=== PATIENT | male | born 1990 | race Caucasian/White ===

== ENCOUNTER 2019-02-27 08:38 | Emergency (ER) | payer SELFPAY ==
[~2019-02-27] VITALS: Ht 172.7 cm; Wt 56.7 kg
[2019-02-27 08:49] VITALS: BP 120/68
--- NOTE | 2019-02-27 08:53 | NUR ---
Patient ambulated to bed 8. RN evaluating patient at bedside.
--- NOTE | 2019-02-27 08:55 | NUR ---
C/O PAIN TO LEFT THIGH X 5 DAYS AGO MULTIPLE PUNCTURE WOUND TO MEDIAL/LATERAL LEFT THIGH S/P BITTEN BY [employer]ICE DOG --- PT STATES WAS TAKEN TO UNKNOWN HOSPITAL AND GIVEN A FEW "SHOTS IN THE ARM" HX--DENIES RX---NONE . DENIES N/V/D; SKIN IS PINK/WARM/DRY; AAOX4 WITH EVEN AND STEADY GAIT; LUNGS CLEAR BL; HR EVEN AND REGULAR; PT DENIES ANY FEVER, CP, SOB, OR COUGH AT THIS TIME; PATIENT STATES PAIN OF 10/10 AT THIS TIME; VSS; PATIENT POSITIONED FOR COMFORT; HOB ELEVATED; BEDRAILS UP X2; BED DOWN. ER MD MADE AWARE OF PT STATUS.
[2019-02-27] MEDS ORDERED: AMOXIL/CLAVULANATE 875/125 MG 1 TAB PO STA (09:38)
[2019-02-27] MEDS ORDERED: SULFAMETH/TRIMETH DS 800/160MG 1 TAB PO ONE (09:40)
[2019-02-27 10:08] VITALS: BP 120/68
--- NOTE | 2019-02-27 10:09 | NUR ---
Patient discharged with v/s stable. Written and verbal after care instructions given and explained. Patient alert, oriented and verbalized understanding of instructions. Ambulatory with steady gait. All questions addressed prior to discharge. ID band removed. Patient advised to follow up with PMD. Rx of augmentin/ibuprofen/bactrim given. Patient educated on indication of medication including possible reaction and side effects. Opportunity to ask questions provided and answered.
== END 2019-02-27 10:07 | disposition home or self-care (01) ==
LOC: MED 08:38
DX: S71.102A Unspecified open wound, left thigh, initial encounter (principal); L03.116 Cellulitis of left lower limb; F17.200 Nicotine dependence, unspecified, uncomplicated; Z71.6 Tobacco abuse counseling; W54.0XXA Bitten by dog, initial encounter; Y93.89 Activity, other specified; Y92.89 Other specified places as the place of occurrence of the external cause; Y99.8 Other external cause status
CPT/HCPCS: 99283